=== PATIENT | male | born 1970 | race Caucasian/White ===

== ENCOUNTER 2022-11-27 08:23 | Emergency (ER) | payer BC, SELFPAY ==
[2022-11-27 08:29] VITALS: BP 142/98; PULSE 78; RESP 16; TEMP 36.6; O2SAT 98; BMI 36.1
--- NOTE | 2022-11-27 08:46 | ED_ITS ---
HPI - Wound/Laceration General Chief Complaint: Wound/Laceration Stated Complaint: UPPER EXTEMITY INJURY, HAND Time Seen by Provider: 11/27/22 08:46 Source: patient Mode of arrival: walk-in Limitations: no limitations History of Present Illness HPI narrative: Patient presents to emergency department complaining of left index laceration. Patient states he was using small and he was in her he did not wear his gloves and it accidentally slipped the dorsum of his left index finger. Patient denies taking any blood thinners but states that he has been bleeding anyone stopped. His tetanus shot is up-to-date. He states he has numbness which is chronic he has injured this finger multiple times with multiple tendons lacerated and repair in the past by Dr. Lo. He states he does not have any bony tenderness and does not have an difficulty moving and so he is refusing to get an x-ray done. He states he is in a hurry and he will likely to just close it and he will in a timely fashion with the orthopedic surgeon. Related Data Previous Rx's Medication Instructions Recorded cephalexin 500 mg capsule 500 mg PO Q8H 7 days #21 caps 11/27/22 Allergies Allergy/AdvReac Type Severity Reaction Status Date / Time No Known Drug Allergies Allergy Verified 11/27/22 08:28 Review of Systems ROS Status of ROS 10 or more systems reviewed and unremarkable except as noted in history and below Exam Narrative Exam Narrative: Nurses notes and vital signs reviewed and patient is not hypoxic. General: Nontoxic, Well-appearing and in no apparent distress. Skin: Warm, dry, no pallor noted. No Rash Head: Normocephalic, atraumatic. Neck: Supple, non-tender. Eye: Pupils are equal, round and EOMI. No scleral icterus. Ears, Nose, Mouth, and Throat: TM clear, no posterior oropharynx erythema or nasal mucosal hypertrophy, uvula is mid-line Oral mucosa is moist Cardiovascular: Regular Rate and Rhythm without murmur, gallop or rub. Respiratory: No accessory muscle use or respiratory distress. Lungs are clear to auscultation, no wheezing, rales or rhonchi Chest Wall: no tenderness Back: No midline thoracic or lumbar vertebral tenderness. No CVA tenderness Musculoskeletal: Left index finger dorsally macerated laceration from the proximal phalanx to the distal phalanx. The nail was not involved. There is no pulsatile bleeding. Bleeding is controlled with pressure. Patient has decreased two-point discrimination and diminished sensation. capillary refill is brisk. The extensor digitorum tendon radial lateral band severed. I can only locate the proximal end of it and cannot locate the distal end of it. Patient does not have any bony tenderness he does have full range of motion he is able to oppose all digits with thumb. He is able to flex,extend and abduct and adduct the index finger with resistance. normal ROM, no calf or popliteal tenderness, no lower extremity edema/swelling GI: Abdomen is soft, non-distended. Normal bowel sounds. No masses appreciated. No tenderness to palpation. No rebound, guarding, or rigidity noted. Neurological: A&O x4. No cranial nerve dysfunction observed. No truncal ataxia. Moves all extremities. Sensation intact. Psychiatric: Cooperative and interactive. Normal mood and affect. Constitutional Vital Signs - 24 hr 11/27/22 08:29 Temperature 97.9 F Pulse Rate [Monitor] 78 Respiratory Rate 16 Blood Pressure [Right Arm] 142/98 H Pulse Oximetry 98 Oxygen Delivery Method Room Air Course Vital Signs Vital signs: Vital Signs Temperature 97.9 F 11/27/22 08:29 Pulse Rate 78 11/27/22 08:29 Respiratory Rate 16 11/27/22 08:29 Blood Pressure 142/98 H 11/27/22 08:29 Pulse Oximetry 98 11/27/22 08:29 Oxygen Delivery Method Room Air 11/27/22 08:29 Temperature 97.9 F 11/27/22 08:29 Pulse Rate 78 11/27/22 08:29 Respiratory Rate 16 11/27/22 08:29 Blood Pressure 142/98 H 11/27/22 08:29 Pulse Oximetry 98 11/27/22 08:29 Oxygen Delivery Method Room Air 11/27/22 08:29 MDM - Wound/Laceration MDM Narrative Medical decision making narrative: Laceration repair. The patient was identified by me. Procedure risks and benefits were discussed with patient and/or family. Area was prepped and draped in a sterile fashion. 2ml lidocaine 1% without epinephrine were injected. wound was inspected in full range of motion. Adequate anesthesia was obtained. 5 sutures, interrupted, nylon 4.0 were used to obtain adequate closure. The edges were well approximated. Antibiotic ointment was applied. Nonstick dressing was applied with pressure gauze. I discussed with the patient that need of the x-ray. He is adamant that he does not want to have one done and understands that he could suffer permanent disability, loss of limb,and . He states that he will follow-up with the orthopedic surgeon. In the radial aspect of the middle phalanx, The extensor digitorum tendon radial lateral band severed. I can only locate the proximal end of it and cannot locate the distal end of it. Patient does not have any bony tenderness he does have full range of motion he is able to oppose all digits with thumb. He is able to flex, extend and abduct and adduct the index finger with resistance. Patient Was prophylactically started on Keflex. She states his tetanus is up-to-date. He was given wound care instructions.Patient is awake alert oriented ?4 and is able to make educated decisions. I cannot force him to do everything as they stated to him that is the standard of care and he understands that we'll send the laceration without any other studies were not be appropriate but that is what he is choosing to do at this time. At this time the patient is without objective evidence of an acute process requiring hospitalization or inpatient management. The patient has remained hemo dynamically stable. No additional indication for emergent studies at this time. I answered all questions. Discussed discharge instructions including standard anticipatory guidance and what should prompt a return to the emergency department, including if they get worse are not getting better or develops any new or concerning symptoms. I've given them specific time frame in which to follow-up, and who to follow-up with. The patient demonstrates understanding. Patient is nontoxic and stable for discharge with outpatient follow-up. This note was created with the assistance of a speech recognition program. Although the intention is to generate documents that actually reflects the content of the visit, no guarantees can be provided that every mistake has been identified and corrected by editing. Differential Diagnosis Differential diagnosis: Likely laceration Discharge Plan Discharge Chief Complaint: Wound/Laceration Clinical Impression: Laceration of left index finger with tendon involvement Patient Disposition: Home, Self-Care Time of Disposition Decision: 09:04 Condition: Good Mode of Transportation: Private Vehicle Prescriptions / Home Meds: New cephalexin 500 mg capsule 500 mg PO Q8H 7 Days Qty: 21 0RF Instructions: Laceration (ED) Additional Instructions: wound Care, Apply Antibiotic Ointment Twice a Day. Sutures out in 12-14 Days. Follow up with Primary Care Doctor. Return to the Emergency Department with a Possible Concerns and Discuss. Stand Alone Forms: Portal Instructions Referrals: SUDARSHAN DOMINGUEZ [Primary Care Provider] - 1 week ANNA MARIE LEIGH [Physician] - 11/28/22 8:00 am
[2022-11-27] MEDS: LIDOCAINE HCL 1% PF 20 MG/2 ML VIAL 1 ML INJ (09:13)
== END 2022-11-27 09:56 | disposition home or self-care (01) ==
PROVIDERS: Emergency Provider Emergency Medicine; PCP Family Medicine
DX: S66.321A Laceration of extensor muscle, fascia and tendon of left index finger at wrist and hand level, initial encounter (principal); W26.9XXA Contact with unspecified sharp object(s), initial encounter
CPT/HCPCS: 12001; 99282